=== PATIENT | male | born 1940 | race Two or more races ===

== ENCOUNTER 2017-11-11 17:23 | Observation (INO) | payer BC, MEDICARE, OTHER ==
--- NOTE | 2017-11-11 17:55 | RADIOLOGY REPORT (SQ) ---
EXAM DESCRIPTION: CT HEAD WITHOUT COMPLETED DATE/TIME: 11/11/2017 5:40 pm REASON FOR STUDY: bed 1 stroke alert COMPARISON: None. TECHNIQUE: Axial images acquired through the brain without intravenous contrast. Images reviewed wi th bone, brain and subdural windows. Images stored on PACS. All CT scanners at this facility use dose modulation, iterative reconstruction, and/or weight based d osing when appropriate to reduce radiation dose to as low as reasonably achievable (ALARA). [facility]: Dose Right [facility]: CareDose [facility]: Dose Right [facility]: Teradose 4D [facility]: Smart MinuteKey RADIATION DOSE: CT Rad equipment meets quality standard of care and radiation dose reduction techniq ues were employed. CTDIvol: 64.6 mGy. DLP: 1034 mGy-cm. mGy. LIMITATIONS: None. FINDINGS: VENTRICLES: Prominent ventricles secondary to involutional atrophy. CEREBRUM: No masses. No hemorrhage. No midline shift. No evidence for acute infarction. Normal gra y/white matter differentiation. No areas of low density in the white matter. CEREBELLUM: No masses. No hemorrhage. No alteration of density. No evidence for acute infarction. EXTRAAXIAL SPACES: No fluid collections. No masses. ORBITS AND GLOBE: No intra- or extraconal masses. Normal contour of globe without masses. CALVARIUM: No fracture. PARANASAL SINUSES: No fluid or mucosal thickening. SOFT TISSUES: No mass or hematoma. OTHER: No other significant finding. IMPRESSION: NO ACUTE INTRACRANIAL IMAGING FINDINGS. EVIDENCE OF ACUTE STROKE: NO. COMMENT: Quality ID # [id number]: Final reports with documentation of one or more dose reduction techniques (e.g., Automated exposure control, adjustment of the mA and/or kV according to patient size, use of iterative reconstruction technique) TECHNICAL DOCUMENTATION: JOB ID: [id number]- All Rights Reserved
[2017-11-11 17:58] LABS: ABSOLUTE BASOPHILS # (AUTO) 0.1 10^3/uL (0.0-0.2); ABSOLUTE EOSINOPHILS # (AUTO) 0.1 10^3/uL (0.0-0.6); ABSOLUTE LYMPHOCYTES (AUTO) 2.9 10^3/uL (0.5-4.7); ABSOLUTE MONOCYTES (AUTO) 0.8 10^3/uL (0.1-1.4); ABSOLUTE NEUT (AUTO) 4.9 10^3/uL (1.7-8.2); BASOPHILS % (AUTO) 1.1 % (0-2); EOSINOPHILS % (AUTO) 1.5 % (0-6); HEMATOCRIT 43.9 % (37.9-51.0); HEMOGLOBIN 14.5 g/dL (13.5-17.0); INTERNATIONAL RATION (INR) 0.86; LYMPHOCYTES % (AUTO) 32.7 % (13-45); MEAN CORPUSCULAR HGB CONC 33.1 g/dL (32.0-36.0); MEAN CORPUSCULAR VOLUME 88 fl (80-97); MONOCYTES % (AUTO) 9.3 % (3-13); PLATELET COUNT 280 10^3/uL (150-450); PROTHROMBIN TIME 12.4 SEC (11.4-15.4); RED BLOOD COUNT 5.01 10^6/uL (4.35-5.55); RED CELL DISTRIBUTION WIDTH 14.2 % (11.5-14.0); SEGMENTED NEUTROPHILS % (AUTO) 55.4 % (42-78); TOTAL CELLS COUNTED % (AUTO) 100 %; WHITE BLOOD COUNT 8.8 10^3/uL (4.0-10.5)
[2017-11-11 17:59] LABS: PARTIAL THROMBOPLASTIN TIME 28.7 SEC (23.5-35.8)
--- NOTE | 2017-11-11 18:03 | RADIOLOGY REPORT (SQ) ---
EXAM DESCRIPTION: CHEST SINGLE VIEW COMPLETED DATE/TIME: 11/11/2017 5:53 pm REASON FOR STUDY: bed 1 stroke alert COMPARISON: 08/20/2007. EXAM PARAMETERS: NUMBER OF VIEWS: One view. TECHNIQUE: Single frontal radiographic view of the chest acquired. RADIATION DOSE: NA LIMITATIONS: None. FINDINGS: LUNGS AND PLEURA: No opacities, masses or pneumothorax. No pleural effusion. MEDIASTINUM AND HILAR STRUCTURES: No masses. Contour normal. HEART AND VASCULAR STRUCTURES: Mild cardiomegaly. Possible borderline vascular congestion. BONES: No acute findings. HARDWARE: Sternotomy wires. OTHER: No other significant finding. IMPRESSION: MILD CARDIOMEGALY. POSSIBLE BORDERLINE VASCULAR CONGESTION. TECHNICAL DOCUMENTATION: JOB ID: [id number] [employer]- All Rights Reserved
[2017-11-11] MEDS ORDERED: METOCLOPRAMIDE HCL INJ/PF 10 MG/2 ML SDV IV ONE (18:16)
[2017-11-11 18:23] LABS: ALANINE AMINOTRANSFERASE 20 U/L (21-72); ALBUMIN 4.2 g/dL (3.5-5.0); ALKALINE PHOSPHATASE 105 U/L (38-126); ANION GAP 11 (5-19); ASPARTATE AMINO TRANSFERASE 18 U/L (17-59); BILIRUBIN,DIRECT 0.3 mg/dL (0.0-0.4); BILIRUBIN,TOTAL 0.3 mg/dL (0.2-1.3); BLOOD UREA NITROGEN 20 mg/dL (7-20); CALCIUM 9.7 mg/dL (8.4-10.2); CARBON DIOXIDE 27 mmol/L (22-30); CHLORIDE 101 mmol/L (98-107); CREATINE KINASE 112 U/L (55-170); GLUCOSE 207 mg/dL (75-110); POTASSIUM 4.4 mmol/L (3.6-5.0); SODIUM 139.2 mmol/L (137-145); TOTAL PROTEIN 7.1 g/dL (6.3-8.2)
--- NOTE | 2017-11-11 18:23 | ER Document Report ---
ED General - General Chief Complaint: Headache >24 hrs old Stated Complaint: POSSIBLE SYNCOPE Time Seen by Provider: 11/11/17 18:14 Mode of Arrival: Medic Information source: Relative, Emergency Med Personnel Notes: This is a 77-year-old man with a history of coronary artery disease (CABG), hypertension, diabetes who was usual state of health today brought in by EMS. The patient is accompanied by his who gives history. She states that she saw the patient's primary care doctor earlier in day for general checkup and all was fine. She states the patient went down for a nap at 2 PM. She states that the patient got up at 3:50 PM (the was in the bathroom at the time) and the patient started to walk and apparently fell. She denies him hitting his head. She states he seemed out of it and seemed to faint 2 more times after this. She states her brother thought that the patient had a left facial droop. The patient was brought in by EMS as a possible stroke. Fingerstick at the same was in the 200 range as per the . The GCS listed by EMS was 15. They do note he was slow to respond. In the emergency room, the patient is very lethargic with his eyes closed. He complains of a significant headache as well as generalized weakness. He denies any focal weakness. He does not speak much because he seems very weak. The states that his speech does not sound slurred it is just that he seems very weak. TRAVEL OUTSIDE OF THE [place] IN LAST 30 DAYS: No - HPI Onset: Just prior to arrival Onset/Duration: Sudden Quality of pain: Dull Severity: Moderate Pain Level: 3 Associated symptoms: denies: Chest pain, Fever, Shortness of breath Exacerbated by: Denies Relieved by: Denies Similar symptoms previously: Yes Recently seen / treated by doctor: No - Related Data Allergies/Adverse Reactions: Shellfish * [Shellfish] Allergy (Mild, Verified 11/11/17 17:56) RASH Past Medical History - General Information source: Patient - Social History Smoking Status: Never Smoker Cigarette use (# per day): No Chew tobacco use (# tins/day): No Frequency of alcohol use: None Drug Abuse: None Lives with: Family Family History: None Patient has suicidal ideation: No Patient has homicidal ideation: No - Past Medical History Cardiac Medical History: Reports: Hx Hypertension Denies: Hx Heart Attack Pulmonary Medical History: Denies: Hx Asthma Neurological Medical History: Reports: Hx Migraine. Denies: Hx Cerebrovascular Accident, Hx Seizures Endocrine Medical History: Reports: Hx Diabetes Mellitus Type 2 GI Medical History: Denies: Hx Hepatitis, Hx Hiatal Hernia, Hx Ulcer Infectious Medical History: Denies: Hx Hepatitis Past Surgical History: Reports: Hx Abdominal Surgery - SMALL BOWELL REPAIR, Hx Open Heart Surgery - BYPASS X4. Denies: Hx Pacemaker Review of Systems - Review of Systems Constitutional: denies: Chills, Fever EENT: No symptoms reported Cardiovascular: See HPI Respiratory: No symptoms reported Gastrointestinal: No symptoms reported Genitourinary: No symptoms reported Male Genitourinary: No symptoms reported Musculoskeletal: No symptoms reported Skin: No symptoms reported Hematologic/Lymphatic: No symptoms reported Neurological/Psychological: See HPI Physical Exam - Vital signs Vitals: Resp Pulse Ox 22 H 100 11/11/17 17:49 11/11/17 17:49 Notes: Physical exam: Accu-Chek 180 GENERAL: 77-year-old man, lethargic, arousable, minimally conversant, appears very weak. He is complaining of a headache. HEAD: Atraumatic, normocephalic. EYES: Pupils are irregular bilaterally (he has had cataract surgery), they are reactive to light, extraocular movements intact, sclera anicteric, conjunctiva is somewhat injected. ENT: TMs normal, nares patent, oropharynx clear without exudates. Moist mucous membranes. NECK: Normal range of motion, supple without obvious mass or JVD. LUNGS: Breath sounds clear to auscultation bilaterally and equal. No wheezes rales or rhonchi. HEART: Regular rate and rhythm without murmurs, rubs or gallops. ABDOMEN: Soft, normoactive bowel sounds. No tenderness to palpation. No guarding, no rebound. No masses appreciated. EXTREMITIES: Normal range of motion, no pitting or edema. No clubbing or cyanosis. NEUROLOGICAL: He is lethargic and appears very weak. He does know the month and his age, he is able to open his eyes and close them. He does have a gaze from side to side, visual field is very difficult to obtain because of his weakness. There is no obvious facial palsy. The patient is able to hold both arms up for 10 seconds, he is not able to hold either leg up for any appreciable time. He is not able to perform perform finger to nose due to generalized weakness. His sensory is intact. He is not really able to provide picture descriptions object naming's are sent since reading. This is due to his profound weakness. At this time, the NIH score is quite limited by his ability to perform it. However, I do not detect any lateralizing focal weakness. PSYCH: Lethargic SKIN: Warm, Dry, normal turgor, no rashes or lesions noted. Course - Re-evaluation Re-evalutation: 11/11/17 19:41 Note: Patient states he starting to feel better. He is more verbal and able to give a better story. He states his headache is much improved. He denies that this is the worst headache of his life. He states that he has had headaches which have been worse than this in the past and he has had injections for in the past. It is unclear whether that was the cause of the syncope today. His initial cardiac enzymes have been normal. He denies any abdominal pain at this time. In summary, patient does not have lateralizing signs suggestive of acute stroke. He is not a candidate for thrombolytics. 11/12/17 03:53 - Vital Signs Vital signs: Temp Pulse Resp BP Pulse Ox 97.5 F 69 18 159/77 H 98 11/12/17 03:26 11/12/17 03:26 11/12/17 03:26 11/12/17 03:26 11/12/17 03:26 - Laboratory Result Diagrams: 11/11/17 17:30 11/11/17 17:30 Laboratory results interpreted by me: 11/11/17 11/11/17 11/11/17 17:30 17:30 18:25 RDW 14.2 H Creatinine 1.30 H Est GFR (Non-Af Amer) 54 L Glucose 207 H POC Glucose 182 H ALT 20 L - Diagnostic Test Radiology reviewed: Image reviewed - CT of the head shows no acute bleed. Chest x-ray shows no infiltrates - EKG Interpretation by Me Rate: Normal Rhythm: NSR - EKG shows normal sinus rhythm with a ventricular rate of 78, left anterior hemiblock, nonspecific T changes laterally, no acute ST elevation or depression, Critical Care Note - Critical Care Note Total time excluding time spent on procedures (mins): 60 Discharge - Discharge Clinical Impression: Syncope Condition: Stable Disposition: ADMITTED OBSERVATION Admitting Provider: Hospitalist - Dr. Robbins Unit Admitted: Telemetry
[2017-11-11 18:33] LABS: CREATINE KINASE MB 1.83 ng/mL (<4.55)
[2017-11-11 18:35] LABS: TROPONIN I < 0.012 ng/mL
[2017-11-11] MEDS: NORMAL SALINE 1000 ML 1,000 ML IV PRN ×2 (18:45→20:06)
[2017-11-11] MEDS ORDERED: ACETAMINOPHEN 325 MG TABLET PO ONE (19:46)
[2017-11-11] MEDS ORDERED: ACETAMINOPHEN 325 MG TABLET PO PRN (21:03)
[2017-11-11] MEDS ORDERED: ZOLPIDEM TARTRATE 5 MG TABLET PO PRN (21:03)
[2017-11-11] MEDS ORDERED: ONDANSETRON 4 MG TAB.RAPDIS PO PRN (21:03)
[2017-11-11] MEDS ORDERED: MAGNESIUM HYDROXIDE SUSP 30 ML UDCUP PO PRN (21:03)
[2017-11-11] MEDS ORDERED: NORMAL SALINE 1000 ML 1,000 ML IV PRN (21:12)
[2017-11-11] MEDS ORDERED: INSULIN LISPRO 100 UNIT/ML 3 ML VIAL SUBCUT PRN (21:28)
[2017-11-11] MEDS ORDERED: GLUCAGON,HUMAN RECOMB 1 MG INJ IM PRN (21:28)
[2017-11-11] MEDS ORDERED: DEXTROSE 50%-WATER 25 GM/50 ML DISP.SYRIN IV PRN ×2 (21:28)
[2017-11-11] MEDS ORDERED: DEXTROSE 40% GEL 15 GM TUBE PO PRN ×2 (21:28)
[2017-11-11] MEDS ORDERED: DOCUSATE SODIUM 100 MG CAPSULE PO ONE (22:00)
[2017-11-11] MEDS: FAMOTIDINE 20 MG TABLET PO SCH (22:06)
[2017-11-11 22:10] LABS: CREATINE KINASE MB 1.37 ng/mL (<4.55)
[2017-11-11 22:14] LABS: TROPONIN I < 0.012 ng/mL
[2017-11-11] MEDS ORDERED: NITROGLYCERIN 0.4 MG/TAB 25 TAB/BOTTLE SL PRN (22:41)
--- NOTE | 2017-11-11 22:41 | PDOC H&P ---
History of Present Illness Admission Date/PCP: 11/11/17 19:58 JIMMIE DIEZ MD Patient complains of: Loss of consciousness History of Present Illness: WILLIAM SHAY is a 77 year old male Who relates that he passed out several times. He was in his normal state of health and did see his regular physician earlier in the day. He laid down to take a nap and when he arose he apparently passed out and fell to the floor. His called EMS. Apparently he then passed out several more times. Information is obtained from the patient and his daughter the is not at bedside Past Medical History Cardiac Medical History: Reports: Coronary Artery Disease, Hypertension Denies: Myocardial Infarction Pulmonary Medical History: Denies: Asthma Neurological Medical History: Reports: Migraine Denies: Seizures Endocrine Medical History: Reports: Diabetes Mellitus Type 2 Malignancy Medical History: Reports: Other - Prostate cancer GI Medical History: Denies: Hepatitis, Hiatal Hernia Hematology: Denies: Anemia, Sickle Cell Disease Past Surgical History Past Surgical History: Reports: Coronary Artery Bypass Graft Denies: Pacemaker Social History Lives with: Spouse/Significant other Smoking Status: Former Smoker Frequency of Alcohol Use: None Drugs: None Hx Prescription Drug Abuse: No - Advance Directive Resuscitation Status: Full Code Family History Family History: DM Parental Family History Reviewed: Yes Children Family History Reviewed: Yes Sibling(s) Family History Reviewed.: Yes Medication/Allergy Home Medications: Amlodipine Besylate [Norvasc 5 mg Tablet] 5 mg PO QHS 11/11/17 Aspirin [Aspirin 325 mg Tablet] 325 mg PO DAILY 11/11/17 Atorvastatin Calcium [Lipitor 40 mg Tablet] 40 mg PO QHS 11/11/17 Ergocalciferol (Vitamin D2) [Vitamin D2] 50,000 unit PO TH@1000 11/11/17 Glimepiride [Amaryl 4 mg Tablet] 4 mg PO BID 11/11/17 Insulin Aspart [Novolog Flexpen] 0 unit SUBCUT .SLD SCALE 11/11/17 Insulin Glargine,Hum.rec.anlog [Basaglar Kwikpen U-100] 50 unit SQ QHS 11/11/17 Lisinopril/Hydrochlorothiazide [Lisinopril-Hctz 20-12.5 mg Tab] 2 tab PO DAILY 11/11/17 Metformin HCl [Glucophage] 1,000 mg PO QHS 01/23/18 Metoprolol Tartrate [Lopressor 25 mg Tablet] 25 mg PO QHS 11/11/17 Metoprolol Tartrate [Lopressor 50 mg Tablet] 50 mg PO QAM 11/11/17 Nitroglycerin [Nitrostat 0.4 mg (1/150 Gr) Tabs 25/Bottle] 1 tab SL Q5MP PRN Omeprazole Magnesium [Prilosec Otc] 20 mg PO QHS 11/11/17 Tamsulosin HCl [Flomax 0.4 mg Cap.sr] 0.4 mg PO QHS 11/11/17 Allergies/Adverse Reactions: Shellfish * [Shellfish] Allergy (Mild, Verified 11/11/17 17:56) RASH Review of Systems Constitutional: ABSENT: chills, fatigue, weakness Eyes: PRESENT: visual disturbances - Decreased vision Ears: ABSENT: hearing changes Nose, Mouth, and Throat: PRESENT: other - Dentures Cardiovascular: ABSENT: chest pain, dyspnea on exertion, palpitations Respiratory: ABSENT: cough, dyspnea, hemoptysis Gastrointestinal: PRESENT: constipation Genitourinary: PRESENT: other - Incontinence Musculoskeletal: ABSENT: back pain, joint swelling Integumentary: ABSENT: lesions, rash Neurological: PRESENT: dizziness, syncope - Recurrent syncope. ABSENT: confusion, convulsions, focal weakness, lack of coordination, memory loss Psychiatric: ABSENT: anxiety, depression, hallucinations Endocrine: PRESENT: other - Diabetes. ABSENT: flushing, heat intolerance Hematologic/Lymphatic: ABSENT: easy bleeding, easy bruising Physical Exam Vital Signs: Temp Pulse Resp BP Pulse Ox 26 H 156/91 H 99 11/11/17 18:01 11/11/17 18:01 11/11/17 18:01 General appearance: PRESENT: no acute distress, cooperative, well-nourished Head exam: PRESENT: atraumatic, normocephalic Eye exam: PRESENT: EOMI, PERRLA. ABSENT: nystagmus Ear exam: PRESENT: normal external ear exam Neck exam: PRESENT: full ROM. ABSENT: carotid bruit, JVD, meningismus Respiratory exam: PRESENT: clear to auscultation angel, symmetrical, unlabored. ABSENT: accessory muscle use Cardiovascular exam: ABSENT: diastolic murmur, irregular rhythm, systolic murmur GI/Abdominal exam: PRESENT: normal bowel sounds, soft. ABSENT: organolmegaly, tenderness Rectal exam: PRESENT: deferred Extremities exam: ABSENT: pedal edema Musculoskeletal exam: PRESENT: normal inspection Neurological exam: PRESENT: alert, awake, oriented to person, oriented to place , oriented to time, oriented to situation Psychiatric exam: PRESENT: appropriate affect, normal mood Skin exam: PRESENT: dry, normal color, warm Results Laboratory Results: 11/11/17 11/11/17 21:30 21:30 Creatine Kinase 92 CK-MB (CK-2) 1.37 Troponin I < 0.012 11/11/17 11/11/17 11/11/17 17:30 17:30 17:30 WBC 8.8 Hgb 14.5 Hct 43.9 Plt Count 280 PT 12.4 INR 0.86 APTT 28.7 Sodium 139.2 Potassium 4.4 Chloride 101 Carbon Dioxide 27 BUN 20 Creatinine 1.30 H Glucose 207 H POC Glucose Lactic Acid Creatine Kinase 112 CK-MB (CK-2) Troponin I 11/11/17 11/11/17 11/11/17 17:30 18:25 18:26 WBC Hgb Hct Plt Count PT INR APTT Sodium Potassium Chloride Carbon Dioxide BUN Creatinine Glucose POC Glucose 182 H Lactic Acid 1.2 Creatine Kinase CK-MB (CK-2) 1.83 Troponin I < 0.012 11/11/17 11/11/17 21:30 21:30 WBC Hgb Hct Plt Count PT INR APTT Sodium Potassium Chloride Carbon Dioxide BUN Creatinine Glucose POC Glucose Lactic Acid Creatine Kinase 92 CK-MB (CK-2) 1.37 Troponin I < 0.012 Impressions: Chest X-Ray 11/11/17 17:27 IMPRESSION: MILD CARDIOMEGALY. POSSIBLE BORDERLINE VASCULAR CONGESTION. Head CT 11/11/17 17:27 IMPRESSION: NO ACUTE INTRACRANIAL IMAGING FINDINGS. EVIDENCE OF ACUTE STROKE: NO. Assessment & Plan - Diagnosis (1) Syncope Qualifiers: Syncope type: unspecified Qualified Code(s): R55 - Syncope and collapse Is this a current diagnosis for this admission?: Yes (2) DM2 (diabetes mellitus, type 2) Qualifiers: Diabetes mellitus complication status: with unspecified complications Diabetes mellitus fdc insulin use: unspecified fdc insulin use status Qualified Code(s): E11.8 - Type 2 diabetes mellitus with unspecified complications Is this a current diagnosis for this admission?: Yes (3) CAD (coronary artery disease) Qualifiers: Coronary Disease-Associated Artery/Lesion type: bypass graft [place] vs. transplanted heart: [place] Associated angina: without angina Qualified Code(s): I25.810 - Atherosclerosis of coronary artery bypass graft(s) without angina pectoris Is this a current diagnosis for this admission?: Yes (4) Prostate CA Is this a current diagnosis for this admission?: Yes - Time Time Spent: 30 to 50 Minutes Within: within 24 hours - Plan Summary Plan Summary: Patient will be placed in observation status. He will be placed on telemetry. Serial enzymes will be performed. I would anticipate that if he has no significant dysrhythmia identified and his enzymes are normal that he will be discharged tomorrow. He will receive DVT prophylaxis with low molecular weight heparin. He will receive sliding scale insulin coverage while in the hospital. Anticipated length of stay is less than 2 midnights.
[2017-11-11] MEDS ORDERED: METFORMIN HCL 500 MG TABLET PO ONE (23:00)
[2017-11-11] MEDS ORDERED: ATORVASTATIN CALCIUM 40 MG TABLET PO ONE (23:00)
[2017-11-11] MEDS ORDERED: LANSOPRAZOLE 15 MG TAB.RAP.DR PO ONE (23:00)
[2017-11-11] MEDS ORDERED: METOPROLOL TARTRATE 25 MG TABLET PO ONE (23:00)
[2017-11-11] MEDS ORDERED: TAMSULOSIN HCL 0.4 MG CAP.SR.24H PO ONE (23:00)
[2017-11-11] MEDS ORDERED: INSULIN GLARGINE,HUM.REC.ANLOG 300 UNIT/3 ML INSULN.PEN SUBCUT ONE (23:00)
[2017-11-11] MEDS ORDERED: AMLODIPINE BESYLATE 5 MG TABLET PO ONE (23:00)
[2017-11-12] MEDS ORDERED: INSULIN GLARGINE,HUM.REC.ANLOG 1,000 UNIT/10 ML UNIT SUBCUT ONE
[2017-11-12 04:03] LABS: ANION GAP 5 (5-19); BLOOD UREA NITROGEN 19 mg/dL (7-20); CALCIUM 9.4 mg/dL (8.4-10.2); CARBON DIOXIDE 25 mmol/L (22-30); CHLORIDE 107 mmol/L (98-107); CHOLESTEROL 106.37 mg/dL (0-200); GLUCOSE 269 mg/dL (75-110); POTASSIUM 4.4 mmol/L (3.6-5.0); TRIGLYCERIDES 117 mg/dL (<150)
[2017-11-12 04:14] LABS: DIRECT LDL 53 mg/dL (<100)
[2017-11-12 04:15] LABS: CREATINE KINASE MB 1.45 ng/mL (<4.55)
[2017-11-12 04:18] LABS: TROPONIN I < 0.012 ng/mL
[2017-11-12] MEDS ORDERED: METOPROLOL TARTRATE 50 MG TABLET PO SCH (08:00)
--- NOTE | 2017-11-12 08:50 | EKG REPORT ---
SEVERITY:- ABNORMAL ECG - SINUS RHYTHM PROBABLE LEFT ATRIAL ABNORMALITY PROBABLE INFERIOR INFARCT, OLD PROBABLE ANTEROSEPTAL INFARCT, OLD LATERAL LEADS ARE ALSO INVOLVED : Confirmed by: Gabriella Shelton MD 12-Nov-2017 08:49:44
--- NOTE | 2017-11-12 08:50 | EKG REPORT ---
SEVERITY:- ABNORMAL ECG - SINUS RHYTHM SINUS PAUSE/ARREST WITH ATRIAL ESCAPE LEFT ATRIAL ABNORMALITY LEFT ANTERIOR FASCICULAR BLOCK LOW VOLTAGE IN FRONTAL LEADS CONSIDER ANTEROSEPTAL INFARCT NONSPECIFIC T ABNORMALITIES, LATERAL LEADS : Confirmed by: Gabriella Shelton MD 12-Nov-2017 08:49:40
[2017-11-12] MEDS: FAMOTIDINE 20 MG TABLET PO SCH (09:47)
[2017-11-12] MEDS ORDERED: HYDROCHLOROTHIAZIDE 25 MG TABLET PO SCH (10:00)
[2017-11-12] MEDS ORDERED: LISINOPRIL 10 MG TABLET PO SCH (10:00)
[2017-11-12] MEDS ORDERED: ENOXAPARIN SODIUM INJ 40 MG/0.4 ML DISP.SYRIN SUBCUT SCH (10:00)
[2017-11-12] MEDS ORDERED: GLIMEPIRIDE 4 MG TABLET PO SCH (10:00)
[2017-11-12] MEDS ORDERED: (PENDING PHARMACY ID) (Lisinopril/Hydrochlorothiazide [Lisinopril-Hctz 20-12.5 Mg Tab] 2 T PO SCH (10:00)
[2017-11-12] MEDS ORDERED: DOCUSATE SODIUM 100 MG CAPSULE PO SCH (10:00)
[2017-11-12] MEDS ORDERED: ASPIRIN 325 MG TABLET PO SCH (10:00)
[2017-11-12 11:14] LABS: CREATINE KINASE MB 1.59 ng/mL (<4.55)
[2017-11-12 11:20] LABS: TROPONIN I < 0.012 ng/mL
[2017-11-12 12:10] VITALS: BP 134/81
--- NOTE | 2017-11-12 16:14 | DISCHARGE SUMMARY E ---
Discharge Summary NAME: WILLIAM SHAY : 1940 AGE: 77Y ADMITTED: 11/11/2017 DISCHARGED: 11/12/2017 CODE STATUS: FULL CODE. OUTPATIENT TRANSIT SPECIALIST: At [facility]. PRIMARY CARE PROVIDER: Claude Scott M.D. DISCHARGE DIAGNOSIS: 1. Syncope with a long history of syncopal episodes. 2. Coronary artery disease. 3. Hypertension. 4. Diabetes mellitus type 2. 5. Complex migraines. DISCHARGE MEDICATIONS: 1. Norvasc 5 mg p.o. at hour of sleep. 2. Aspirin 325 mg p.o. daily. 3. Lipitor 40 mg p.o. at hour of sleep. 4. Vitamin D2 50,000 international units p.o. on . 5. Amaryl 4 mg p.o. b.i.d. 6. Basaglar 50 units subcutaneously at hour of sleep. 7. NovoLog FlexPen at meals and at bedtime. 8. Lisinopril/HCTZ 20/12.5 2 tablets p.o. daily. 9. Metformin 1,000 mg p.o. at hour of sleep. 10. Lopressor 25 mg p.o. at hour of sleep. 11. Lopressor 50 mg p.o. q.a.m. 12. Nitrostat as directed. 13. Prilosec 20 mg p.o. at hour of sleep. 14. Flomax 0.4 mg p.o. at hour of sleep. DIET: Heart healthy, diabetic. ACTIVITY: No driving. CONDITION: Stable. PHYSICAL EXAMINATION: GENERAL: On examination, the patient is a well-developed, reasonably nourished, 77-year-old male who is awake, alert and oriented to person, place, time and situation. He is verbal, conversational, does not appear to be in any acute distress. VITAL SIGNS: As follows: Temperature 97.6, pulse 80, respirations 18. Blood pressure 134/81. Oxygen saturation 98% on room air. SKIN: Warm and dry. No rash. He is not diaphoretic. HEENT: Pupils equal, round and reactive to light and accommodation. Conjunctivae pink. There is no evidence of JVP. CARDIOVASCULAR SYSTEM: Heart is regular. There is no murmur or rub. CHEST: Clear, symmetrical, unlabored. ABDOMEN: Soft, nontender, nondistended. BACK: No CVA tenderness or sacral edema. EXTREMITIES: No clubbing, cyanosis, or edema. PSYCHIATRIC: Appropriate affect. Pleasant mood. HISTORY OF PRESENT ILLNESS: The patient is a 77-year-old male with a past medical history of coronary artery disease, migraines and a long history of syncopal episodes. The patient presented to the emergency department with a chief complaint of loss of consciousness. The patient relates that he had passed out several times throughout the day. The patient was in his normal state of health and actually saw his primary care physician earlier in the day. The patient stated that he had laid down to take a nap and when he arose, he apparently passed out, fell to the floor. The patient's called EMS. The patient apparently passed out 2 other separate occasions after that. The patient was unable to provide any history on the episodes. The patient had no involuntary movements, no loss of continence. The patient was found to be alert upon EMS arrival. In the past, the patient has worn an event monitor due to this and the patient is currently awaiting evaluation by Neurology for this, and the patient was referred to the hospitalist for observation and management. HOSPITAL COURSE: The patient was observed in Continuous Telemetry Unit. Serial cardiac enzymes were obtained, all of which were nonsuggestive. The patient had no events on the family literacy coordinator and replication of symptoms. I was notified by nursing staff that the patient was stating that he was going to leave AMA if the patient was not seen. Upon my evaluation of the patient, he was absolutely adamant for discharge, stating that the syncope episodes have been lasting for "years." This was nothing to keep the patient in the hospital. I did instruct the patient to be quite careful to avoid falls and so forth and not to drive, but I was agreeable to discharging him as the patient does have neurological followup. The patient again denies any symptoms including nausea, vomiting, diarrhea, shortness of breath, dizziness, chest pain. No fevers or chills. The patient remained afebrile. His blood pressure is in acceptable range. The patient is eager for discharge. DISCHARGE PLAN: 1. The patient is advised to follow up with primary care provider within 1 to 2 weeks for hospital followup. 2. The patient is to follow up with Neurology as already scheduled for hospital followup. 3. The patient is to follow up with his switchboard troubleshooter within 1 to 2 weeks for hospital followup. I would advise a 30-day event monitor instead of a 48-hour monitor. TIME SPENT: On this discharge, including assessment, plan, physical examination, patient education, review of records and family meeting is 25 minutes. DICTATING PHYSICIAN: RON SWEET NP [id number] PHY#: [id number] ID: [id number] JOB#: [id number] ACCT: [id number] cc:NERI SALEEM M.D. RON SWEET NP > MTDD
[2017-11-12] MEDS ORDERED: AMLODIPINE BESYLATE 5 MG TABLET PO SCH (22:00)
[2017-11-12] MEDS ORDERED: TAMSULOSIN HCL 0.4 MG CAP.SR.24H PO SCH (22:00)
[2017-11-12] MEDS ORDERED: LANSOPRAZOLE 15 MG TAB.RAP.DR PO SCH (22:00)
[2017-11-12] MEDS ORDERED: METOPROLOL TARTRATE 25 MG TABLET PO SCH (22:00)
[2017-11-12] MEDS ORDERED: INSULIN GLARGINE,HUM.REC.ANLOG 300 UNIT/3 ML INSULN.PEN SUBCUT SCH (22:00)
[2017-11-12] MEDS ORDERED: METFORMIN HCL 500 MG TABLET PO SCH (22:00)
[2017-11-12] MEDS ORDERED: ATORVASTATIN CALCIUM 40 MG TABLET PO SCH (22:00)
[2017-11-13] MEDS ORDERED: ERGOCALCIFEROL (VITAMIN D2) 50000 UNIT (1.25 MG) CAPSULE PO SCH (10:00)
== END 2017-11-12 13:05 | disposition home or self-care (01) ==
LOC: ER 17:23 → EH 19:58
PROVIDERS: ADMIT Internal Medicine; ATTEND Internal Medicine
DX: R55 Syncope and collapse (principal); I25.810 Atherosclerosis of coronary artery bypass graft(s) without angina pectoris; I10 Essential (primary) hypertension; E11.8 Type 2 diabetes mellitus with unspecified complications; G43.109 Migraine with aura, not intractable, without status migrainosus; R32 Unspecified urinary incontinence; K59.00 Constipation, unspecified; C61 Malignant neoplasm of prostate; R40.2411 Glasgow coma scale score 13-15, in the field [EMT or ambulance]; Z87.891 Personal history of nicotine dependence; Z95.1 Presence of aortocoronary bypass graft; Z79.899 Other long term (current) drug therapy; Z79.4 Long term (current) use of insulin; Z98.890 Other specified postprocedural states
CPT/HCPCS: 93005 ×2; 99291; 96361; 96374; 36415 ×2; 82553 ×2; 82962; 82550 ×2; 83605; 85025; 85610; 85730; 82272; 80048; 80053; 84484 ×2; 83036; 80061; 71045; 70450; 93010 ×2; J1815; J2765; J3490; J7030 ×2; G0378